=== PATIENT | female | born 1965 | race African-American/Black ===

== ENCOUNTER 2017-02-20 12:49 | Observation (INO) | payer OTHER ==
--- NOTE | ~2017-02-20 | DS ---
Discharge Summary [facility] [address] [place]. [address] NAME: IESHA MARK : 61 STATUS : ADM Danny PAT#: [id number] AGE: 51 ADM/REG DATE : 02/20/17 MR#: [id number] REPORT SERV DATE: 02/21/17 DICTATED BY: DATE: REPORT STATUS : Draft TRANSCRIBED BY: MODL DATE: 02/21/17 ADMISSION DATE: 02/20/2017 DISCHARGE DATE: 02/21/2017 The patient was admitted to the [facility]. DISCHARGE DIAGNOSES: 1. Hematochezia-etiology unclear. Abdominal imaging in stool studies negative. To follow up with Dr. Navas as an outpatient as scheduled on Friday, 02/26 for colonoscopy. 2. Loose stools-resolved. 3. Abdominal pain-resolved. 4. Nausea and vomiting-resolved. 5. Dizziness-resolved. Orthostatics negative. 6. Extensive past medical history including lupus, rheumatoid arthritis, Raynaud's, COPD, gout, sickle trait, osteoarthritis, prior CVA, reflux disease, depression. On several immune suppressing medications. IMAGING: CT abdomen and pelvis with contrast, 02/20, for hematochezia, no acute abnormality in the abdomen or pelvis. Colonic diverticulosis, but no evidence of diverticulitis. No colitis. Left ovarian cyst. Subpleural 4 mm nodule in the right lower lobe dating back to 2008. Stable. Increased density in the basilar aspects of the lower lobes of both lungs likely related to atelectasis. LABS: Hemoglobin values reveal lowest hemoglobin of 13.6. Urinalysis negative. Stool Gram stain with few white blood cells and mixed bakari. Occult blood positive. Ova and parasite negative. C diff PCR negative. Creatinine normal. Electrolytes normal. Liver enzymes normal. Coagulation studies normal. BRIEF HISTORY: For full details, please see the previously dictated H and P. This is a 51- year-old female who has recently been scheduled for an outpatient colonoscopy for loose stools and hematochezia, but had progressive hematochezia and decided to seek care in the emergency department, where she was found to be heme-positive and the emergency physician requested observation admission due to hematochezia and weakness. HOSPITAL COURSE: The patient was admitted to the clinical decision unit, on IV fluids with serial hemoglobin and hematocrit values. Her hemoglobin never declined significantly from admission values. She did not require any transfusions. She had no evidence of hypotension. Orthostatic vital signs were negative. She had no recurrence of bleeding while in the hospital. She had a formed bowel movement. Stool was sent for stool studies and was negative for C diff, ova and parasite, and had only few white blood cells-not suggestive of colitis. CT abdomen and pelvis was negative as well. Thus, the patient is being sent home to follow up with Dr. Navas as scheduled on Friday, 02/26. There currently is no indication for an inpatient colonoscopy or further inpatient evaluation due to the patient's stability. Discharge medications are identical to home medications and include, 1. Aspirin 81 mg p.o. q.a.m. Discharge Summary [address] [address] NAME: IESHA MARK : 61 STATUS : ADM Danny PAT#: [id number] AGE: 51 ADM/REG DATE : 02/20/17 MR#: [id number] REPORT SERV DATE: 02/21/17 DICTATED BY: DATE: REPORT STATUS : Draft TRANSCRIBED BY: MODCherry DATE: 02/21/17 2. Biotin 5 mg p.o. twice a day. 3. Voltaren 75 mg p.o. twice a day. 4. TriLipix 135 mg p.o. daily. 5. Fish oil 1000 mg p.o. three times a day. 6. Folic acid 1 mg p.o. q.a.m. 7. Neurontin 300 mg p.o. three times a day. 8. Plaquenil 200 mg p.o. twice a day. 9. Methotrexate 12.5 mg p.o. every week. 10.Nitro-Bid ointment applied twice a day to hands and feet for neuropathy. 11.Omeprazole 20 mg p.o. twice a day. 12.Potassium gluconate 550 mg p.o. q.a.m. 13.Prednisone 10 mg p.o. q.a.m. 14.Myrbetriq 50 mg p.o. q.a.m. 15.Ultram 50 mg p.o. twice a day. 16.Valtrex 500 mg p.o. every other morning. 17.B12 1000 mcg sublingual q.a.m. 18.Ventolin two puffs inhaled every four hours as needed. 19.Vitamin C 500 mg p.o. q.a.m. 20.Vitamin D3 1000 units p.o. twice a day. 21.Advair 250/50 one puff inhaled twice a day. 22.Lidocaine topical three times a day as needed for pain. The patient is instructed to call Dr. Navas's office on Friday to determine if she needs to hold any of her maintenance medications prior to her planned colonoscopy. TRE/REED Bulmaro Ordaz M.D. / [id number] CC: Nay Moura M.D. Carol Adams, M.D. Chad E. Paxson, DO Henry Paik, M.D.
--- NOTE | ~2017-02-20 | HP ---
History And Physical [place] [id number] [facility]. [address] NAME: IESHA MARK : 61 STATUS : ADM Danny PAT#: [id number] AGE: 51 ADM/REG DATE : 02/20/17 MR#: [id number] REPORT SERV DATE: 02/20/17 DICTATED BY: DATE: REPORT STATUS : Draft TRANSCRIBED BY: MODL DATE: 02/20/17 DATE OF ADMISSION: 02/20/2017 The patient is admitted to the [facility], attending is Dr. Bulmaro Ordaz. CHIEF COMPLAINT: Loose stools, blood in stools. HISTORY OF PRESENT ILLNESS: Ms Vikki Steiner is a 51-year-old female, patient of Dr. Llamas, who presented to the emergency department at his recommendation this morning after experiencing approximately 24 hours of loose stools and bright red blood per rectum. She reports that yesterday she started off with loose stools and some bilateral lower quadrant abdominal pain and cramping. With one of the bowel movements, she noticed some blood in the commode and some scant amount of blood on wiping. This progressed throughout the day to the point that she passed nothing, but bright red blood per rectum this morning. She reports approximately five episodes of hematochezia since yesterday. She also reports feeling dizzy, but has not had any syncopal episodes. She denies any chest pain or shortness of breath, but feels "weak." When she sits on the commode and passes blood, she then begins to feel dizzy and starts throwing up "yellow gold material." She has had little appetite recently. No changes in weight. Aside from the past 24 hours, no changes in her bowel habits. No history of GI bleeding or melena. No history of hemorrhoids. She denies a history of C. diff or other forms of infectious colitis and has not been on any antibiotics recently. The last time she passed blood by rectum was this morning. She has not had any loose stools or hematochezia here in the emergency department. Dr. Bates has evaluated the patient. Vital signs are stable, as are hemoglobin and hematocrit. White blood cell count is normal. CT abdomen and pelvis with contrast dye was performed and shows only diverticulosis. He is requesting admission to the Hospitalist Service for observation and possible GI consultation. REVIEW OF SYSTEMS: Full 14-point review of systems is negative except as dictated in the history of present illness. PAST MEDICAL HISTORY: Includes, 1. Lupus-both systemic and discoid. 2. Rheumatoid arthritis. 3. Raynaud syndrome. 4. COPD-not oxygen dependent. 5. Gout. 6. Sickle trait. 7. Osteoarthritis. 8. Prior CVA 10 years ago with some residual right facial numbness. History And Physical [address] [address] NAME: IESHA MARK : 61 STATUS : ADM Danny PAT#: [id number] AGE: 51 ADM/REG DATE : 02/20/17 MR#: [id number] REPORT SERV DATE: 02/20/17 DICTATED BY: DATE: REPORT STATUS : Draft TRANSCRIBED BY: REED DATE: 02/20/17 9. GERD. 10.Depression. 11.Colon polyps seen on colonoscopy in 2013. PAST SURGICAL HISTORY: Includes bladder tack and hysterectomy. ALLERGIES: TETRACYCLINE. MEDICATIONS: Complete list is pending, but review of the patient's list includes diclofenac, Plaquenil, methotrexate, and prednisone. SOCIAL HISTORY: The patient is single and disabled. She consumes occasional alcohol and smokes two to three cigarettes per day, but is interested in cutting back on the tobacco use. She denies the use of any illicit substances. FAMILY HISTORY: Pertinent for diverticulosis, hypertension, and coronary artery disease in her mother and father of complications from coronary artery disease and congestive heart failure. PHYSICAL EXAMINATION: VITAL SIGNS: Blood pressure 111/75, temperature 97.8, pulse 83, respirations 17, oxygen saturations 100% on room air. Orthostatic vital signs were not checked here. GENERAL: This is a thin female, in no acute distress. Alert and oriented in three dimensions. Pleasant and conversant. HEENT: Normocephalic, atraumatic. Pupils are equally round and reactive to light. No icterus. No pallor. NECK: Supple with no jugular venous distention. No lymphadenopathy. No bruits. CARDIOVASCULAR: Regular rate and rhythm. No murmurs, rubs or gallops. LUNGS: Clear to auscultation bilaterally. No wheezes, crackles. No rhonchi. ABDOMEN: Soft, nontender, and nondistended with normoactive bowel sounds in four quadrants and no hepatosplenomegaly. EXTREMITIES: No cyanosis, clubbing, or edema. SKIN: Normal skin turgor. No rash or skin breakdown. NEUROLOGIC: Cranial nerves II through XII are tested and are intact. Deep tendon reflexes 2+ bilateral brachioradialis and patellar tendons. Sensation intact to fine touch and temperature in all four limbs. LABORATORY DATA: White blood cell count 6.8, hemoglobin 14.6, hematocrit 41.1, platelets 208. INR 1.2. Sodium 141, potassium 4.2, chloride 106, bicarb 33, BUN 10, creatinine 0.7, glucose 82, calcium 8.9. Total protein 8.2, albumin 3.6, total bilirubin 0.2, alkaline phosphatase 69, ALT 21, AST 12. Lipase 93. IMAGIN. CT abdomen and pelvis shows no definite acute abnormality in the abdomen or pelvis. Colonic diverticulosis without evidence of acute diverticulitis. Left ovarian cyst. Subpleural 4 mm nodule in the right lower lobe, appears to be present on 2009 imaging. Increased density in the basilar aspect of the lower lobes of both lungs, likely History And Physical [address] [address] NAME: IESHA MARK : 61 STATUS : ADM Danny PAT#: [id number] AGE: 51 ADM/REG DATE : 02/20/17 MR#: [id number] REPORT SERV DATE: 02/20/17 DICTATED BY: DATE: REPORT STATUS : Draft TRANSCRIBED BY: MODL DATE: 02/20/17 related to atelectasis. 2. EKG shows normal sinus rhythm with a rate of 73. IMPRESSION: 1. Diarrhea, nausea, abdominal pain, hematochezia. 2. Dizziness-possible volume depletion or orthostasis. 3. On multiple immunosuppressant medications and disease modifying therapies. 4. Additional past medical history as outlined including lupus, rheumatoid arthritis, Raynaud's, non-oxygen dependent chronic obstructive pulmonary disease, gout, sickle trait, osteoarthritis, prior cerebrovascular accident, reflux disease, depression, and ongoing tobacco use. PLAN: 1. Observation, admission to the clinical decision unit. Attending, Dr. Bulmaro Ordaz. 2. IV fluids, serial hemoglobin and hematocrit values with transfusion parameters if hemoglobin is less than or equal to 8. 3. Obtain stool studies if the patient produces a loose bowel movement-send for C. diff, ova and parasites, Gram stain and culture. 4. Bleeding has presently stopped and the patient is hemodynamically stable. We will defer GI consultation at present unless hemoglobin declines or there is other evidence of significant bleeding. Otherwise, the patient has already been set up for an outpatient colonoscopy next week with Dr. Navas and may be safe to have this procedure at the originally intended time. Additional recommendations pending results of above. TRE/REED Bulmaro Ordaz M.D. / [id number] CC: Nay Moura M.D. Chad E. Paxson, DO Carol Adams, M.D. Ann H. Rybolt, M.D.
[2017-02-20 12:16] LABS: BASOPHILS 0.3 %; BASOPHILS ABSOLUTE 0.02 10/3/uL (0.0-0.16); EOSINOPHILS 1.2 %; EOSINOPHILS ABSOLUTE 0.08 10/3/uL (0.0-0.53); ER CBC TAT 0 Hrs 03 Mins; HEMATOCRIT 41.1 % (36.0-48.0); HEMOGLOBIN 14.6 g/dL (12.0-16.0); IMMATURE GRANULOCYTES 0.1 %; IMMATURE GRANULOCYTES ABSOLUTE 0.01 10/3/uL (0.0-0.11); LYMPHOCYTES ABSOLUTE 2.18 10/3/uL (0.67-4.30); MEAN CORPUS HGB CONC 35.5 g/dL (32.0-36.0); MEAN CORPUSCULAR HEMOGLOB 30.2 pg (26.0-34.0); MEAN CORPUSCULAR VOLUME 85.1 fL (80-100); MEAN PLATELET VOLUME 9.9 fL (9.2-13.0); MONOCYTES 8.7 %; MONOCYTES ABSOLUTE 0.59 10/3/uL (0.21-1.20); NEUTROPHILS 57.7 %; NEUTROPHILS ABSOLUTE 3.94 10/3/uL (2.02-8.40); PLATELET COUNT 208 10/3/uL (150-400); RBC DISTRIBUTION WIDTH 15.8 % (12.0-16.0); RED CELL COUNT 4.83 10/6/uL (4.0-5.6); WHITE BLOOD CELLS 6.8 10/3/uL (4.5-10.5)
[2017-02-20 12:17] LABS: MANUAL DIFF NO %
[2017-02-20 12:28] LABS: INTERNATIONAL NORMAL RATI 1.2 UNITS (-); PARTIAL THROMBO TIME 28.6 SEC (22.5-37.2); PROTIME (NOT ORD) 14.9 SEC (12.0-14.5)
[2017-02-20 12:32] LABS: A/G RATIO 0.8 (0.7-1.9); ALBUMIN 3.6 G/DL (3.5-5.0); ALKALINE PHOSPHATASE 69 U/L (45-117); BUN (BLOOD UREA NITROGEN) 10 MG/DL (6-23); CALCIUM, SERUM 8.9 MG/DL (8.5-10.4); CHLORIDE, SERUM 106 MMOL/L (96-112); CO2 (CARBON DIOXIDE) 33 MMOL/L (24-34); GFR AFRICAN AMERICAN 115 ML/MIN (>=60); GFR NON AFRICAN AMERICAN 99 ML/MIN (>=60); GLOBULIN 4.6 G/DL (2.5-4.1); GLUCOSE, SERUM 82 MG/DL (60-99); POTASSIUM, SERUM 4.2 MMOL/L (3.5-5.3); SGOT(AST) 12 U/L (5-40); SGPT(ALT) 21 U/L (5-65); SODIUM, SERUM 141 MMOL/L (135-148); TOTAL BILIRUBIN 0.2 MG/DL (0-1.2); TOTAL PROTEIN 8.2 G/DL (6.0-8.5)
[~2017-02-20 12:49] MED LIST: AMB10 PO; CALCIUM PO; MOBIC15 MG PO; MULTIVITAMI1 PO; NAIL-EX2.5 MG PO; NEUR300 PO; ULTRAM50 PO; VESICARE10 MG PO; ZOL50 PO
[2017-02-20] MEDS ORDERED: ASAB PO (16:20)
[2017-02-20] MEDS ORDERED: BIOTIN5 MG PO (16:21)
[2017-02-20] MEDS ORDERED: VOLT75 PO (16:21)
[2017-02-20] MEDS ORDERED: FOLIC PO (16:22)
[2017-02-20] MEDS ORDERED: FISH-EPA1000 MG PO (16:22)
[2017-02-20] MEDS ORDERED: TRILIPIX135 MG PO (16:22)
[2017-02-20] MEDS ORDERED: NEUR300 PO (16:22)
[2017-02-20] MEDS ORDERED: MTX2.5 PO (16:23)
[2017-02-20] MEDS ORDERED: PLAQ200B PO (16:23)
[2017-02-20] MEDS ORDERED: NITROBID2 % TOP (16:24)
[2017-02-20] MEDS ORDERED: POTASSIUM GLUCONATE PO (16:25)
[2017-02-20] MEDS ORDERED: PRILO PO (16:25)
[2017-02-20] MEDS ORDERED: P10 PO (16:26)
[2017-02-20] MEDS ORDERED: MYRBETRIQ50 MG PO (16:26)
[2017-02-20] MEDS ORDERED: ULTRAM50 PO (16:26)
[2017-02-20] MEDS ORDERED: VITAMIN B-121000 MC1 SL (16:27)
[2017-02-20] MEDS ORDERED: VENTOLIN HFA INH (16:27)
[2017-02-20] MEDS ORDERED: VALTREX5 PO (16:27)
[2017-02-20] MEDS ORDERED: VITC500 PO (16:28)
[2017-02-20] MEDS ORDERED: ADVAIR250 INH (16:28)
[2017-02-20] MEDS ORDERED: VITAMIN D31000 UNIT PO (16:28)
[2017-02-20] MEDS ORDERED: LIDOCAINE 2% JELLY TOP (16:29)
[2017-02-20 17:36] LABS: HEMATOCRIT 39.8 % (36.0-48.0); HEMOGLOBIN 13.8 g/dL (12.0-16.0)
[2017-02-20 23:40] LABS: HEMATOCRIT 39.1 % (36.0-48.0); HEMOGLOBIN 13.5 g/dL (12.0-16.0)
[2017-02-21 01:53] LABS: ASCORBIC ACID (UR NOT ORDER) NEG (NEG); BILIRUBIN, URINE NEGATIVE (NEG); KETONE, URINE NEGATIVE (NEG); LEUKOCYTE ESTERASE(NOT OR NEG (NEG); WBC (NOT ORDERED) (RFLEX) < 1 (0-5)
[2017-02-21 05:49] LABS: HEMATOCRIT 40.1 % (36.0-48.0); HEMOGLOBIN 13.6 g/dL (12.0-16.0)
== END 2017-02-21 14:10 | disposition home or self-care (01) ==
LOC: ER 12:49 → CDU1 15:42
PROVIDERS: Emergency Medicine; Hospitalist
DX: K92.1 Melena (principal); R19.7 Diarrhea, unspecified; R10.9 Unspecified abdominal pain; R11.0 Nausea; R11.10 Vomiting, unspecified; I73.00 Raynaud's syndrome without gangrene; I69.392 Facial weakness following cerebral infarction; J44.9 Chronic obstructive pulmonary disease, unspecified; M32.9 Systemic lupus erythematosus, unspecified; M06.9 Rheumatoid arthritis, unspecified; M10.9 Gout, unspecified; M19.90 Unspecified osteoarthritis, unspecified site; K21.9 Gastro-esophageal reflux disease without esophagitis; L93.0 Discoid lupus erythematosus; F32.9 Major depressive disorder, single episode, unspecified; F17.210 Nicotine dependence, cigarettes, uncomplicated; Z86.010 Personal history of colon polyps; Z98.890 Other specified postprocedural states; Z90.710 Acquired absence of both cervix and uterus; Z82.49 Family history of ischemic heart disease and other diseases of the circulatory system; Z83.79 Family history of other diseases of the digestive system; Z88.1 Allergy status to other antibiotic agents; Z79.82 Long term (current) use of aspirin; Z79.1 Long term (current) use of non-steroidal anti-inflammatories (NSAID); Z79.51 Long term (current) use of inhaled steroids; Z79.52 Long term (current) use of systemic steroids; Z79.891 Long term (current) use of opiate analgesic; Z79.899 Other long term (current) drug therapy
CPT/HCPCS: 36415; 74177; 80053; 81001; 82272; 83690; 85014; 85018; 85025; 85610; 85730; 86850; 86900; 86901; 87205; 87328; 87329; 87493; 87493-59; 93005; 96374; 99285; A9270-GY; C9113; G0378; Q9967

== ENCOUNTER 2017-02-26 06:22 | Day surgery (SDC) | payer OTHER ==
--- NOTE | ~2017-02-26 | EGD ---
EGD REPORT [facility] [address] [address] NAME: IESHA WALLER : 61 STATUS : REG [facility]#: [id number] AGE: 51 ADM/REG DATE : 02/26/17 MR#: [id number] REPORT SERV DATE: 02/26/17 DICTATED BY: STEVO GODFREY DATE: 02/26/17 REPORT STATUS : Draft TRANSCRIBED BY: [facility] DATE: 02/26/17 Endoscopy [facility] Patient Name: Iesha Waller Date of : 1965 Attending MD: STEVO GODFREY MD Procedure Date No Time: 02/26/2017 Procedure: Colonoscopy Indications: Hematochezia Referring MD: CLARE BENITES Medicines: Propofol per Anesthesia Complications: No immediate complications. Procedure: Pre-Anesthesia Assessment: - ASA Grade Assessment: III - A patient with severe systemic disease. After I obtained informed consent, the scope was passed under direct vision. Throughout the procedure, the patient's blood pressure, pulse, and oxygen saturations were monitored continuously. The PCF [id number] was introduced through the anus and advanced to the cecum, identified by appendiceal orifice and ileocecal valve. The colonoscopy was performed without difficulty. The ileocecal valve was photographed. The entire colon was examined. The colonoscopy was performed without difficulty. Findings: The perianal and digital rectal examinations were normal. Multiple medium-mouthed diverticula were found in the recto-sigmoid colon and in the sigmoid colon. Hemorrhoids were found during retroflexion and were Grade I (internal hemorrhoids that do not prolapse). There was a medium-sized lipoma, in the ascending colon. The rest of the colon was normal. Impression: - Diverticulosis in the recto-sigmoid colon and in the sigmoid colon. - Hemorrhoids. - Medium-sized lipoma in the ascending colon. Recommendation: - Patient has a contact number available for emergencies. The signs and symptoms of potential delayed complications were discussed with the patient. Return to normal activities tomorrow. Written discharge instructions were provided to the patient. - Regular diet. EGD REPORT [address] [address] NAME: IESHA WALLER : 61 STATUS : REG [facility] PAT#: [id number] AGE: 51 ADM/REG DATE : 02/26/17 MR#: [id number] REPORT SERV DATE: 02/26/17 DICTATED BY: STEVO GODFREY DATE: 02/26/17 REPORT STATUS : Draft TRANSCRIBED BY: [employer] DATE: 02/26/17 - Patient has a contact number available for emergencies. The signs and symptoms of potential delayed complications were discussed with the patient. Return to normal activities tomorrow. Written discharge instructions were provided to the patient. - Continue present medications. Procedure Code(s): --- Professional --- 24184, Colonoscopy, flexible, proximal to splenic flexure; diagnostic, with or without collection of specimen(s) by brushing or washing, with or without colon decompression (separate procedure) Diagnosis Code(s): --- Professional --- K64.0, First degree hemorrhoids K57.30, Diverticulosis of large intestine without perforation or abscess without bleeding D17.5, Benign lipomatous neoplasm of intra-abdominal organs K92.1, Melena CPT copyright 2013 [employer]. All rights reserved. The codes documented in this report are preliminary and upon data center project manager review may be revised to meet current compliance requirements. Stevo Godfrey MD STEVO GODFREY MD 02/26/2017 8:02 AM This report has been signed electronically. Number of Addenda: 0 Note Initiated On: 02/26/2017 7:41 AM Scope Withdrawal Time 0 hours 7 minutes 1 second
[~2017-02-26 06:22] MED LIST changes: +ADVAIR250 INH; +ASAB PO; +BIOTIN5 MG PO; +FISH-EPA1000 MG PO; +FOLIC PO; +LIDOCAINE 2% JELLY TOP; +MTX2.5 PO; +MYRBETRIQ50 MG PO; +NITROBID2 % TOP; +P10 PO; +PLAQ200B PO; +POTASSIUM GLUCONATE PO; +PRILO PO; +TRILIPIX135 MG PO; +VALTREX5 PO; +VENTOLIN HFA INH; +VITAMIN B-121000 MC1 SL; +VITAMIN D31000 UNIT PO; +VITC500 PO; +VOLT75 PO
== END 2017-02-26 23:59 | disposition home or self-care (01) ==
LOC: DMU 06:22
PROVIDERS: Internal Medicine Gastroenterology
PROC: 0DJD8ZZ Inspection of Lower Intestinal Tract, Via Natural or Artificial Opening Endoscopic (ICD-10-PCS; principal; 2017-02-26 07:30)
DX: K64.0 First degree hemorrhoids (principal); K57.30 Diverticulosis of large intestine without perforation or abscess without bleeding; D12.2 Benign neoplasm of ascending colon; Z88.1 Allergy status to other antibiotic agents; F17.210 Nicotine dependence, cigarettes, uncomplicated; J45.909 Unspecified asthma, uncomplicated; Z86.010 Personal history of colon polyps; Z86.73 Personal history of transient ischemic attack (TIA), and cerebral infarction without residual deficits